=== PATIENT | female | born 1990 | race American Indian/Alaskan Native ===

== ENCOUNTER 2016-08-26 08:54 | Emergency (ER) | payer MEDICAID, OTHER ==
[2016-08-26 10:34] LABS: Basophils % (Auto) 0.3 % (0.0-1.8); Eosinophils % (Auto) 1.8 % (0.0-4.3); Hematocrit 42.9 % (30.3-42.9); Hemoglobin 13.4 gm/dl (10.1-14.3); Mean Corpuscular HGB Conc 31 % (30-34); Mean Corpuscular Volume 72 fl (79-97); Platelet Count 247 K/mm3 (140-440); Red Blood Count 5.95 M/mm3 (3.65-5.03); Red Cell Distribution Width 14.5 % (13.2-15.2); White Blood Count 5.9 K/mm3 (4.5-11.0)
[2016-08-26 10:50] LABS: Alanine Aminotransferase 17 units/L (7-56); Albumin 4.1 g/dL (3.9-5); Albumin/Globulin Ratio 1.5 %; Alkaline Phosphatase 79 units/L (35-129); BUN/Creatinine Ratio 18.75; Blood Urea Nitrogen 15 mg/dL (7-17); Calcium 9.5 mg/dL (8.4-10.2); Carbon Dioxide 28 mmol/L (22-30); Glucose 95 mg/dL (65-100); Lipase 22 units/L (13-60); Total Protein 6.9 g/dL (6.3-8.2)
[2016-08-26 10:51] LABS: Anion Gap 15 mmol/L; Chloride 102.6 mmol/L (98-107); Potassium 4.1 mmol/L (3.6-5.0); Sodium 141 mmol/L (137-145)
[2016-08-26 10:54] LABS: Mean Corpuscular Hemoglobin 23 pg (28-32)
--- NOTE | 2016-08-26 11:01 | Emergency Department Report ---
Entered by JESSICA CASTANON, acting as scribe for CECILIO GONZALEZ PA. Chief Complaint: Abdominal Pain Stated Complaint: ABD PAIN AND BLEEDING Time Seen by Provider: 08/26/16 10:07 - HPI History of Present Illness: 26 y/o female presents c/o abd pain that started 4 days ago. Sx include right sided chest pain, lower pelvic pain, cramps, dizziness, light headedness and vaginal bleeding. Pt denies nausea. LMP 07/13/2016. Pt reports positive test. - ROS Review of Systems: as noted in HPI - Exam Vital Signs: Vital Signs 08/26/16 10:00 Temperature 98.1 F Pulse Rate 64 Respiratory 16 Rate Blood Pressure 122/96 O2 Sat by Pulse 96 Oximetry Physical Exam: General: 26 y/o female in no acute distress. Well-developed, well-nourished. CV: Regular rate and rhythm. No murmurs rubs or gallops. Lungs: Clear to auscultation bilaterally. Abdomen: No tenderness to palpation. No guarding or rebound tenderness. Normal bowel sounds. Mini Neuro: Alert and oriented 3. MSE screening note: Focused history and physical exam performed. Due to findings the following was ordered: ED Disposition for MSE Condition: Stable Instructions: Abdominal Pain (ED) This documentation as recorded by the scribe,JESSICA CASTANON,accurately reflects the service I personally performed and the decisions made by me,CECILIO GONZALEZ PA.
[2016-08-26 11:02] LABS: Bacteria,Urine 1+ /HPF (Negative); Bilirubin,Urine NEG (Negative); Blood,Urine LG (Negative); Ketones,Urine NEG (Negative); Leukocyte Esterase,Urine TR (Negative); Mucus,Urine 2+ /HPF; Nitrite,Urine NEG (Negative); Urobilinogen,Urine < 2.0 mg/dL (<2.0)
--- NOTE | 2016-08-26 12:48 | Ultrasound Report ---
Ultrasound right upper quadrant. History: Right upper quadrant pain with nausea. Findings: The liver, gallbladder, and abdominal aorta are normal. There multiple cystic masses within the right kidney, the largest of which measures 4.5 x 3.9 cm. There is no hydronephrosis. The pancreas is unremarkable. Impression: Multiple right renal cysts.
--- NOTE | 2016-08-26 12:50 | Ultrasound Report ---
Transvaginal and transabdominal OB ultrasound. History: Vaginal bleed. Serum hCG at the time of the study measured 50 (3-4 weeks). Findings: The uterus is normal in size and configuration. There is no evidence of an intrauterine at this time. Endometrial echo measures 8 mm in diameter. The ovaries are normal in size and configuration. There no abnormal fluid collections. Impression: Negative study.
[2016-08-26 15:08] VITALS: BP 137/83
[2016-08-26] MEDS ORDERED: TYLENOL PO ONE (15:37)
--- NOTE | 2016-08-26 16:12 | Emergency Department Report ---
Entered by JESSICA CASTANON, acting as scribe for CECILIO GONZALEZ PA. ED Abdominal Pain HPI - General Chief Complaint: Abdominal Pain Stated Complaint: ABD PAIN AND BLEEDING Time Seen by Provider: 08/26/16 10:11 Source: patient Mode of arrival: Ambulatory Limitations: No Limitations - History of Present Illness Initial Comments: 26 y/o female presents c/o abd pain that started 4 days ago. Sx include right sided chest pain, lower pelvic pain, cramps, dizziness, light headedness and vaginal bleeding. Pt denies nausea. LMP 07/13/2016. Pt reports positive test. No additional Sx MD Complaint: abdominal pain -: days(s) (4) Location: diffuse Radiation: none Migration to: no migration Severity: mild Consistency: constant Improves With: nothing Worsens With: nothing Associated Symptoms: other (right sided chest pain, lower pelvic pain, cramps, dizziness, light headedness and vaginal bleeding). denies: nausea - Related Data LMP (females 10-50): other (07/13/16) Previous Rx's Medication Instructions Recorded Last Taken Type Rivaroxaban [Xarelto] 20 mg PO QDAY #14 tab 02/10/15 Unknown Rx Ondansetron [Zofran Oral Liq] 4 mg PO Q4H PRN #8 oz 03/24/15 Unknown Rx HYDROcodone/APAP 10-325 [[place] 1 each PO Q6HR PRN #14 tablet 06/02/15 Unknown Rx 10-325 mg TAB] Acetaminophen/Codeine [Tylenol #3] 1 tab PO Q6H PRN #20 tab 06/15/15 Unknown Rx Doxycycline [Vibramycin CAP] 100 mg PO Q12HR #28 capsule 06/15/15 Unknown Rx Ibuprofen [Motrin 800 MG tab] 800 mg PO Q8HR PRN #30 tablet 06/15/15 Unknown Rx metroNIDAZOLE [Flagyl] 500 mg PO Q12HR #12 tab 06/15/15 Unknown Rx Allergies Allergy/AdvReac Type Severity Reaction Status Date / Time No Known Allergies Allergy Verified 01/15/15 09:32 ED Review of Systems Comment: All other systems reviewed and negative Cardiovascular: chest pain (right sided) Gastrointestinal: abdominal pain, other (lower pelvic pain). denies: nausea Genitourinary: other (cramps, vaginal bleeding) Neurological: headache, other (dizziness, light headedness) ED Past Medical Hx - Past Medical History Previous Medical History?: Yes Hx Congestive Heart Failure: No Hx Diabetes: No Hx Pulmonary Embolism: Yes Hx Asthma: No Hx COPD: No Additional medical history: PE - Surgical History Past Surgical History?: Yes Additional Surgical History: "filter" - Social History Smoking Status: Never Smoker Substance Use Type: None - Medications Home Medications: Home Medications Medication Instructions Recorded Confirmed Last Taken Type Rivaroxaban [Xarelto] 20 mg PO QDAY #14 tab 02/10/15 03/22/15 Unknown Rx Ondansetron [Zofran Oral Liq] 4 mg PO Q4H PRN #8 oz 03/24/15 Unknown Rx HYDROcodone/APAP 10-325 [[place] 1 each PO Q6HR PRN #14 tablet 06/02/15 Unknown Rx 10-325 mg TAB] Acetaminophen/Codeine [Tylenol #3] 1 tab PO Q6H PRN #20 tab 06/15/15 Unknown Rx Doxycycline [Vibramycin CAP] 100 mg PO Q12HR #28 capsule 06/15/15 Unknown Rx Ibuprofen [Motrin 800 MG tab] 800 mg PO Q8HR PRN #30 tablet 06/15/15 Unknown Rx metroNIDAZOLE [Flagyl] 500 mg PO Q12HR #12 tab 06/15/15 Unknown Rx ED Physical Exam - General Limitations: No Limitations - Other Other exam information: GENERAL: Patient is alert and oriented x 3. No apparent distress, normal gait, atraumatic. HEAD: Head is normocephalic and atraumatic. EYES: Extraocular movements are intact. Pupils are equal, round, and reactive to light and accommodation. NECK: Supple. Non edematous, no carotid bruits. No lymphadenopathy or thyromegaly. LUNGS: Symmetrical with respiration. No wheezing, rales or crackles, CTAB. HEART: Regular rate and rhythm with normal S1/S2 present. No murmurs, rubs, or gallops. ABDOMEN: Soft, nondistended. Nontender to palpation on all quadrants. No organomegaly was noted. Positive bowel sounds. No CVA tenderness. BREAST: Symmetrical. Supple bilaterally, No Masses, lumps, lesions, ulcerations. GENITOURINARY: External genitalia without erythema, exudate or discharge. Vaginal vault is without discharge. Cervix is of normal color without lesion. Cervical os is closed. No bleeding noted. Uterus is noted to be of normal size and nontender. No cervical motion tenderness. No masses are palpated. The adnexa are without masses or tenderness. UROGENITAL: No scrotal mass. Scrotum non tender to palpation bilaterally. No hernia, no scars or penile discharge. EXTREMITIES/MUSCULOSKELETAL: No cyanosis, clubbing, rash, lesions or edema. Full ROM bilaterally. UE/LE Pulses 2+ bilaterally. LE and UE 5+ strength bilaterally SKIN: Warm and dry. No lesions, ulceration or induration present NEUROLOGIC: No focal deficit., Cranial nerves II - XII are grossly intact. No loss of sensation. No facial droop. Negative romberg. PSYCHIATRIC: Mood is congruent with affect. Denies suicidal or homicidal ideations. ED Course Vital Signs 08/26/16 08/26/16 10:00 15:08 Temperature 98.1 F 98.3 F Pulse Rate 64 61 Respiratory 16 16 Rate Blood Pressure 122/96 Blood Pressure 137/83 [Left] O2 Sat by Pulse 96 100 Oximetry ED Medical Decision Making - Lab Data Result diagrams: 08/26/16 10:29 08/26/16 10:25 - Medical Decision Making 26 y/o female presents c/o abd pain that started 4 days ago. Lab/x-ray reveals multiple renal cysts and shows negative study. Patient is in no acute distress at this time. She will be discharged home and is encouraged to follow up with a primary care provider. She is encouraged to return to the emergency room for any worsening I spoke with Dr. Villagomez and review of chart and past MDM was that pt will need to return in 48 hrs for repeat of HCG quantitative and an pelvic transvaginal US for evaluation of . Discussed with pt that she can only take Tylenol for pain. Also discussed with pt right side renal cyst and follow up with a neurologist. Pt verbalized understanding, discussed about giving her Tylenol before shes discharged home. She will need to follow up with [employer]. ED Disposition Clinical Impression: Abdominal pain Qualifiers: Abdominal location: unspecified location Qualified Code(s): R10.9 - Unspecified abdominal pain Disposition: DISCHARGED TO HOME OR SELFCARE Is pt being admited?: No Does the pt Need Aspirin: No Condition: Stable Instructions: Abdominal Pain (ED) Additional Instructions: Please return to ER in 48 hours for repeat of HCG and and Ultrasound. Return sooner is symptom get worst. Referrals: PRIMARY CARE,MD [Primary Care Provider] - 3-5 Days Forms: Work/School Release Form(ED) This documentation as recorded by the KINA vaughn RYAN,accurately reflects the service I personally performed and the decisions made by me,CECILIO GONZALEZ, PA.
== END 2016-08-26 15:45 | disposition home or self-care (01) ==
LOC: ED 08:54
DX: O26.891 Other specified pregnancy related conditions, first trimester (principal); R10.9 Unspecified abdominal pain; Z86.711 Personal history of pulmonary embolism; Z3A.01 Less than 8 weeks gestation of pregnancy
CPT/HCPCS: 36415; 76705; 76801; 76817; 80053; 81001; 83690; 84702; 85025; 86900; 86901

== ENCOUNTER 2016-08-28 08:12 | Emergency (ER) | payer SELFPAY ==
[2016-08-28 09:52] VITALS: BP 147/95
[2016-08-28] MEDS ORDERED: KEPPRA 1,000 MG/NS 0.75% 100ML 0 MG/0 ML BAG IV ONE (10:02)
--- NOTE | 2016-08-28 10:49 | Ultrasound Report ---
Transvaginal and transabdominal OB ultrasound. History: Vaginal spotting. The serum hCG at the time of the study is 13.9, decreased from 50 on August 26. Findings: The uterus is normal. There is no evidence of an intrauterine or ectopic . The ovaries are normal in size and configuration. There is no fluid within the cul-de-sac. Impression: Negative study.
--- NOTE | 2016-08-28 11:50 | Emergency Department Report ---
HPI - General Chief Complaint: Recheck/Abnormal Lab/Rx Time Seen by Provider: 08/28/16 11:38 - [facility] HPI: Room 24 The patient is a 26-year-old female presenting with a chief complaint of abdominal pain and vaginal bleeding. The patient states she developed vaginal bleeding and abdominal pain 5 days ago. The patient came to this Hospital 2 days ago and had a pelvic ultrasound was negative and lab work which revealed hCG Quant 53. The patient was instructed to return to the emergency department in 48 hours for repeat ultrasound and Quant. The patient states her vaginal bleeding has decreased. Patient complains of mild suprapubic abdominal pain. The patient is 5 months states she is not breast-feeding. The patient's last normal menstrual cycle occurred 07/13/2016 Location: [see above] Duration: [see above] Quality: Cramping Severity: Mild Modifying factors: [see above] Context: [see above] Mode of transportation: [not driving] ED Past Medical Hx - Past Medical History Hx Deep Vein Thrombosis: Yes Hx Pulmonary Embolism: Yes Additional medical history: PE - Surgical History Additional Surgical History: IVC filter - Family History Family history: no significant - Social History Smoking Status: Former Smoker Substance Use Type: Alcohol - Medications Home Medications: Home Medications Medication Instructions Recorded Confirmed Last Taken Type No Known Home Medications [No 08/28/16 08/28/16 Unknown History Reported Home Medications] ED Review of Systems ROS: Stated complaint: RETURN VISIT/LAB WORK/US Other details as noted in HPI Comment: All other systems reviewed and negative Constitutional: denies: chills, fever Eyes: denies: eye pain, eye discharge, vision change ENT: denies: ear pain, throat pain Respiratory: denies: cough, shortness of breath, wheezing Cardiovascular: denies: chest pain, palpitations Endocrine: no symptoms reported Gastrointestinal: abdominal pain Genitourinary: abnormal menses Musculoskeletal: denies: back pain, joint swelling, arthralgia Skin: denies: rash, lesions Neurological: denies: headache, weakness, paresthesias Psychiatric: denies: anxiety, depression Hematological/Lymphatic: denies: easy bleeding, easy bruising Physical Exam - Physical Exam Vital Signs: Vital Signs 08/28/16 08/28/16 08/28/16 08:41 09:51 09:52 Temperature 97.8 F 98.4 F Pulse Rate 60 58 L Respiratory 17 16 16 Rate Blood Pressure 152/91 Blood Pressure 147/95 [Left] O2 Sat by Pulse 100 100 100 Oximetry Physical Exam: GENERAL: The patient is well-developed well-nourished female lying on stretcher not appearing to be in acute distress. [] HEENT: Normocephalic. Atraumatic. Extraocular motions are intact. Patient has moist mucous membranes. NECK: Supple. Trachea midline CHEST/LUNGS: Clear to auscultation. There is no respiratory distress noted. HEART/CARDIOVASCULAR: Regular. There is no tachycardia. There is no gallop rub or murmur. ABDOMEN: Abdomen is soft, mild suprapubic discomfort. Patient has normal bowel sounds. There is no abdominal distention. SKIN: There is no rash. There is no edema. There is no diaphoresis. NEURO: The patient is awake, alert, and oriented. The patient is cooperative. The patient has normal speech MUSCULOSKELETAL: There is no evidence of acute injury. ED Course Vital Signs 08/28/16 08/28/16 08/28/16 08:41 09:51 09:52 Temperature 97.8 F 98.4 F Pulse Rate 60 58 L Respiratory 17 16 16 Rate Blood Pressure 152/91 Blood Pressure 147/95 [Left] O2 Sat by Pulse 100 100 100 Oximetry - Consultations Consultation #1: 08/28/16 11:50 Patient's [employer] paged 08/28/16 11:[address] Hauser's PA Susan Mathew-agrees with assessment of spontaneous . States the patient may be discharged and follow up in the office this week ED Medical Decision Making - Lab Data Laboratory Tests 08/28/16 08:48 HCG, Quant 13.99 H - Radiology Data Radiology results: report reviewed (pelvic ultrasound), image reviewed (pelvic ultrasound) Pelvic ultrasound (read by radiologist)-negative study. - Differential Diagnosis spontaneous Critical care attestation.: If time is entered above; I have spent that time in minutes in the direct care of this critically ill patient, excluding procedure time. ED Disposition Clinical Impression: Spontaneous Disposition: DISCHARGED TO HOME OR SELFCARE Is pt being admited?: No Does the pt Need Aspirin: No Condition: Stable Instructions: Spontaneous Miscarriage (ED) Additional Instructions: Return to the emergency department immediately should you develop worsening symptoms, fever, inability to tolerate food or liquid or any other concerns. Referrals: PRIMARY CARE, [Primary Care Provider] - 3-[address] Vidal Hauser, [employer] [Other] - 2-3 Days Time of Disposition: 12:00
== END 2016-08-28 12:20 | disposition home or self-care (01) ==
LOC: ED 08:12
DX: O03.9 Complete or unspecified spontaneous abortion without complication (principal); I82.409 Acute embolism and thrombosis of unspecified deep veins of unspecified lower extremity; Z87.891 Personal history of nicotine dependence
CPT/HCPCS: 36415; 76801; 76817; 84702; 99283; J1953